=== PATIENT | female | born 1950 | race Caucasian/White ===

== ENCOUNTER 2019-11-14 07:15 | Inpatient (IN) | payer MEDICARE, OTHER ==
[~2019-11-14] VITALS: Ht 165.1 cm; Wt 54.5 kg
[~2019-11-14 07:15] MED LIST: APIX5TAB3 PO; COR3.125T PO; ERGO500056 PO; LACT1CAP26 PO; MELA3TAB39 PO
[2019-11-14 07:46] LABS: BASOPHILS % (AUTO) 0.2 % (0-1); EOSINOPHILS % (AUTO) 0.1 % (0-6); HEMATOCRIT 39.9 % (35.0-45.0); HEMOGLOBIN 13.1 g/dl (12.0-16.0); LYMPHOCYTES # (AUTO) 0.3 X10'3 (1.1-4.8); LYMPHOCYTES % (AUTO) 3.4 % (21-51); MEAN CORPUSCULAR HEMOGLOBIN 33.2 PG (27.0-31.0); MEAN CORPUSCULAR HGB CONC 32.9 g/dL (33.0-36.5); MEAN CORPUSCULAR VOLUME 101.1 FL (78-98); MEAN PLATELET VOLUME 9.4 FL (7.4-10.4); MONOCYTES # (AUTO) 0.4 X10'3 (0-0.9); MONOCYTES % (AUTO) 4.5 % (2-12); NEUTROPHILS # (AUTO) 7.4 X10'3 (1.8-7.7); NEUTROPHILS % (AUTO) 91.8 % (42-75); PLATELET COUNT 251 X10'3 (140-440); RED BLOOD COUNT 3.95 X10'6 (4.20-5.60); RED CELL DISTRIBUTION WIDTH 13.2 % (11.5-14.5)
[2019-11-14 08:00] LABS: ALANINE AMINOTRANSFERASE 19 U/L (12-78); ALBUMIN 3.3 G/DL (3.4-5.0); ALBUMIN/GLOBULIN RATIO 1.3 (1.1-1.5); ALKALINE PHOSPHATASE 52 IU/L (46-116); ANION GAP 10 (8-16); ASPARTATE AMINO TRANSFERASE 19 U/L (10-37); BILIRUBIN,TOTAL 0.4 MG/DL (0.1-1.0); BLOOD UREA NITROGEN 14 MG/DL (7-18); BUN/CREATININE RATIO 16.7 (6.6-38.0); CALCIUM 8.6 MG/DL (8.5-10.1); CHLORIDE 110 MMOL/L (99-107); CREATININE 0.84 MG/DL (0.40-0.90); GLUCOSE 148 MG/DL (70-104); SODIUM 144 MMOL/L (135-145); TOTAL CARBON DIOXIDE 24.4 MMOL/L (24-32); TOTAL PROTEIN 5.9 G/DL (6.4-8.2); eGFR 68 ML/MIN
[2019-11-14 08:10] LABS: MAGNESIUM 1.9 MG/DL (1.5-2.4)
[2019-11-14] MEDS ORDERED: ASPI-107 PO (08:14)
[2019-11-14] MEDS ORDERED: DIGO250T2 PO (08:14)
[2019-11-14] MEDS ORDERED: HYDROcodone/acetaminophen 5mg/325mg tablet PO PRN (09:00)
[2019-11-14] MEDS ORDERED: acetaminophen 325mg tablet PO PRN ×2 (09:00)
[2019-11-14] MEDS ORDERED: magnesium 4gm in 100ml NS 100 ML IV PRN (09:00)
[2019-11-14] MEDS ORDERED: magnesium 2GM in 50ml NS 50 ML IV PRN (09:00)
[2019-11-14] MEDS ORDERED: magnesium Cl slow-release 64mg tablet PO PRN (09:00)
[2019-11-14] MEDS ORDERED: potassium CL 10mEq/100ml bag 100 ML IV PRN ×2 (09:00)
[2019-11-14] MEDS ORDERED: morphine 2 MG/ML inj. syringe IV PRN (09:00)
[2019-11-14] MEDS ORDERED: magnesium hydroxide 30ml (MOM) UD suspension PO PRN (09:00)
[2019-11-14] MEDS ORDERED: potassium Cl 20 mEq SR tablet PO PRN ×2 (09:00)
[2019-11-14] MEDS ORDERED: bisacodyl 10mg suppository rectal RC PRN (09:00)
[2019-11-14] MEDS ORDERED: ondansetron/PF 4mg/2ml inj IV PRN (09:00)
[2019-11-14] MEDS: normal saline 1000ml 1,000 ML IV SCH (09:23)
[2019-11-14 09:53] LABS: URINE AMPHETAMINE SCREEN NEGATIVE (Neg); URINE BARBITUATE SCREEN NEGATIVE (Neg); URINE BENZODIAZEPINES SCREEN NEGATIVE (Neg); URINE CANNABINOID SCREEN NEGATIVE (Neg); URINE COCAINE SCREEN NEGATIVE (Neg); URINE METHADONE SCREEN NEGATIVE (Neg); URINE OPIATE SCREEN POSITIVE (Neg); URINE PHENCYCLIDINE SCREEN NEGATIVE (Neg)
[2019-11-14 10:05] LABS: HEMOGLOBIN A1C 6.4 % (4.5-6.2)
--- NOTE | 2019-11-14 10:14 | NUR ---
Patient in room ED 5. I have received report from JOANNA Molina and had the opportunity to ask questions, awaiting patient's arrival from ED.
--- NOTE | 2019-11-14 10:35 | NUR ---
Patient arrived from ED. Ambulated with 2-person assist from gurney to bed. Attached to tele monitor and vitals stable BP: 137/55, HR: 88, T: 99.2, RR: 14, SpO2: 98% on RA. 2 person skin check and MRSA swab performed. Patient resting comfortably watching television.
[2019-11-14 11:00] VITALS: BP 142/51
[2019-11-14 15:00] VITALS: BP 152/77
[2019-11-14 15:56] VITALS: BP_SYST 136; BP_SYST 146; BP_SYST 152; BP_DIAS 62; BP_DIAS 69; BP_DIAS 77
[2019-11-14 18:00] VITALS: BP 147/63
--- NOTE | 2019-11-14 18:00 | NUR ---
[place] Medication Administration: For this medication-pass time frame, all medication were reviewed, dispensed, administered and documented per hospital policy by JOANNA Kaba.
--- NOTE | 2019-11-14 18:00 | NUR ---
[place] documentation: I have reviewed and agree with all interventions, assessments performed and documented by JOANNA Kaba.
--- NOTE | 2019-11-14 18:30 | NUR ---
Patient in room PCU 3013. I have received report from Gayla MARSHALL and had the opportunity to ask questions and assume patient care.
--- NOTE | 2019-11-14 18:33 | NUR ---
Problems reprioritized. Patient report given, questions answered & plan of care reviewed with Marquise RN.
[2019-11-14] MEDS: K and/or MAG REPLACEMENT MC SCH (19:11)
[2019-11-14] MEDS: heparin, porcine 5000 units/ml vial SQ SCH (19:18)
[2019-11-14] MEDS: docusate sod 100mg capsule PO SCH (19:18)
[2019-11-14 20:00] VITALS: BP_SYST 138; BP_SYST 139; BP_SYST 141; BP_DIAS 67; BP_DIAS 70; BP_DIAS 94
[2019-11-14 23:00] VITALS: BP 153/74
[2019-11-15] MEDS: normal saline 1000ml 1,000 ML IV SCH ×2 (01:27→04:56)
[2019-11-15 03:10] VITALS: BP 139/67
[2019-11-15 06:07] LABS: BASOPHILS % (AUTO) 0.3 % (0-1); EOSINOPHILS % (AUTO) 0.5 % (0-6); HEMATOCRIT 35.7 % (35.0-45.0); HEMOGLOBIN 11.9 g/dl (12.0-16.0); LYMPHOCYTES # (AUTO) 1.6 X10'3 (1.1-4.8); LYMPHOCYTES % (AUTO) 27.9 % (21-51); MEAN CORPUSCULAR HEMOGLOBIN 33.7 PG (27.0-31.0); MEAN CORPUSCULAR HGB CONC 33.3 g/dL (33.0-36.5); MEAN CORPUSCULAR VOLUME 101.1 FL (78-98); MEAN PLATELET VOLUME 9.2 FL (7.4-10.4); MONOCYTES # (AUTO) 0.4 X10'3 (0-0.9); MONOCYTES % (AUTO) 6.3 % (2-12); NEUTROPHILS # (AUTO) 3.7 X10'3 (1.8-7.7); PLATELET COUNT 218 X10'3 (140-440); RED BLOOD COUNT 3.53 X10'6 (4.20-5.60); RED CELL DISTRIBUTION WIDTH 13.2 % (11.5-14.5); WHITE BLOOD COUNT 5.7 X10'3 (4.5-11.0)
[2019-11-15 06:17] LABS: ALANINE AMINOTRANSFERASE 17 U/L (12-78); ALBUMIN 2.8 G/DL (3.4-5.0); ALKALINE PHOSPHATASE 47 IU/L (46-116); ANION GAP 11 (8-16); ASPARTATE AMINO TRANSFERASE 18 U/L (10-37); BILIRUBIN,TOTAL 0.6 MG/DL (0.1-1.0); BLOOD UREA NITROGEN 8 MG/DL (7-18); BUN/CREATININE RATIO 12.3 (6.6-38.0); CHLORIDE 111 MMOL/L (99-107); CREATININE 0.65 MG/DL (0.40-0.90); GLUCOSE 81 MG/DL (70-104); MAGNESIUM 1.9 MG/DL (1.5-2.4); POTASSIUM 3.6 MMOL/L (3.5-5.1); SODIUM 145 MMOL/L (135-145); TOTAL CARBON DIOXIDE 22.9 MMOL/L (24-32); TOTAL PROTEIN 5.5 G/DL (6.4-8.2); eGFR > 90 ML/MIN
--- NOTE | 2019-11-15 06:25 | NUR ---
Problems reprioritized. Patient report given, questions answered & plan of care reviewed with Emperatriz MARSHALL.
--- NOTE | 2019-11-15 06:36 | NUR ---
Patient in room PCU 3013. I have received report from JOANNA Camarillo and had the opportunity to ask questions and assume patient care.
[2019-11-15 07:00] VITALS: BP 134/66
[2019-11-15] MEDS: K and/or MAG REPLACEMENT MC SCH (07:56)
[2019-11-15] MEDS: heparin, porcine 5000 units/ml vial SQ SCH (07:58)
[2019-11-15] MEDS: docusate sod 100mg capsule PO SCH (07:59)
[2019-11-15] MEDS ORDERED: digoxin 125mcg (0.125mg) tablet PO SCH (08:00)
[2019-11-15] MEDS ORDERED: aspirin 81mg tablet.DR PO SCH (08:00)
[2019-11-15 11:00] VITALS: BP 138/72
--- NOTE | 2019-11-15 11:58 | NUR ---
Page to Bharathi PAGER ID: [phone] MESSAGE: Patient Lynn [id number]. Abd CT was performed yerterday at [place], they faxed me the report I have it. Please advise. Emperatriz UREÑA [id number]
[2019-11-15] MEDS ORDERED: iohexol 300mg/ml 100ml inj. ONE (13:18)
--- NOTE | 2019-11-15 14:08 | NUR ---
PAGER ID: [phone] MESSAGE: Patient Inez [id number]. CT results are in, please advise for discharge. [facility] [id number]
[2019-11-15] MEDS ORDERED: DOCU-148 PO (14:36)
--- NOTE | 2019-11-15 15:23 | NUR ---
Patient stable for discharge per MD orders. All discharge instructions given to patient and all questions answered. PIV discontinued, cannula intact. Telemetry discontinued, supervisor telephone clerks notified. All belongings collected and sent with patient. Patient picked up by family member, wheelchaired to lobby by staff.
== END 2019-11-15 14:58 | disposition home or self-care (01) | DRG 389 ==
LOC: ER 07:15 → ED HOLD 09:03 → PCU 3S 10:35
PROVIDERS: ADMIT Internal Medicine; ATTEND Internal Medicine
PROC: BW211ZZ Computerized Tomography (CT Scan) of Abdomen and Pelvis using Low Osmolar Contrast (ICD-10-PCS; principal; 2019-11-15)
DX: K56.609 Unspecified intestinal obstruction, unspecified as to partial versus complete obstruction (principal); E44.1 Mild protein-calorie malnutrition; R55 Syncope and collapse; I48.91 Unspecified atrial fibrillation; E11.9 Type 2 diabetes mellitus without complications; M81.0 Age-related osteoporosis without current pathological fracture; Z82.49 Family history of ischemic heart disease and other diseases of the circulatory system; Z90.49 Acquired absence of other specified parts of digestive tract; Z90.710 Acquired absence of both cervix and uterus; Z68.20 Body mass index [BMI] 20.0-20.9, adult
CPT/HCPCS: 36415; 71045; 74177; 80053; 80162; 80305; 83036; 83735; 83880; 84484; 85025; 87081; 93005; 93306; 97161; 97530; 99285; G0378; J1644; J7030; Q9967